=== PATIENT | female | born 1955 | race Caucasian/White ===

== ENCOUNTER 2023-04-04 16:44 | Emergency (ER) | payer MEDICARE ==
[~2023-04-04] VITALS: Ht 152.4 cm; Wt 67.3 kg
[2023-04-04] MEDS ORDERED: ACETAMINOPHEN 325 MG TAB PO ONE (17:30)
[2023-04-04] MEDS ORDERED: ACETAMINOPHEN 325 MG TAB ONE (17:43)
[2023-04-04] MEDS ORDERED: METFORMIN HCL500 M2 PO (17:52)
[2023-04-04] MEDS ORDERED: CARVEDILOL3.125 MG PO (17:52)
[2023-04-04] MEDS ORDERED: LIPITOR20 MG PO (17:52)
[2023-04-04] MEDS ORDERED: GLIMEPIRIDE4 MG (17:52)
[2023-04-04] MEDS ORDERED: LISINOPRIL5 MG PO (17:52)
[2023-04-04] MEDS ORDERED: TRICOR48 MG PO (17:52)
[2023-04-04] MEDS ORDERED: ASPIRIN EC81 MG PO (17:52)
[2023-04-04] MEDS ORDERED: JARDIANCE10 MG (17:52)
[2023-04-04 18:43] VITALS: O2SAT 97
== END 2023-04-04 18:43 | disposition home or self-care (01) ==
LOC: FSED 16:51
DX: S09.8XXA Other specified injuries of head, initial encounter (principal); S00.81XA Abrasion of other part of head, initial encounter; S80.211A Abrasion, right knee, initial encounter; I69.354 Hemiplegia and hemiparesis following cerebral infarction affecting left non-dominant side; I10 Essential (primary) hypertension; E11.44 Type 2 diabetes mellitus with diabetic amyotrophy; Z79.84 Long term (current) use of oral hypoglycemic drugs; Z79.899 Other long term (current) drug therapy; W01.0XXA Fall on same level from slipping, tripping and stumbling without subsequent striking against object, initial encounter; Y92.009 Unspecified place in unspecified non-institutional (private) residence as the place of occurrence of the external cause
CPT/HCPCS: 70450; 99283